=== PATIENT | female | born 1965 | race Caucasian/White ===

== ENCOUNTER 2021-09-26 10:51 | Emergency (ER) | payer MEDICARE, MEDICAID ==
[~2021-09-26] VITALS: Ht 165.1 cm; Wt 48.6 kg
[~2021-09-26 10:51] MED LIST: BUSPIRONE; TRILEPTAL150 MG PO; ZIPRASIDONE
[2021-09-26 11:24] LABS: BASO % 0.2 % (0.0-2.0); EOS % 0.1 % (0.0-4.0); GRAN # 13.5 K/mm3 (1.4-6.5); GRAN % 82.4 % (42.2-75.2); HEMATOCRIT 41.6 % (37.0-47.0); HEMOGLOBIN 14.4 g/dl (12.5-16.0); LYMPH # 1.4 K/mm3 (1.2-3.4); LYMPH % 8.8 % (20.0-51.0); MEAN CELL VOLUME 84 fl (80.0-100.0); MEAN CORPUSCULAR HEMOGLOBIN 29 pg (27-31); MEAN CORPUSCULAR HGB CONC 35 g/dl (33.0-37.0); MEAN PLATELET VOLUME 8.7 fl (7.4-10.4); MONO # 1.3 K/mm3 (0.1-0.6); PLATELET COUNT 352 K/mm3 (130-400); RED BLOOD COUNT 4.96 M/mm3 (4.10-5.30); REDCELL DISTRIBUTION WIDTH-CV 13.1 % (11.5-14.5)
[2021-09-26 11:36] LABS: PROTHROMBIN TIME 11.6 SECONDS (9.7-12.8)
[2021-09-26 11:38] LABS: PARTIAL THROMBOPLASTIN TIME 31.2 SECONDS (26.0-37.0)
[2021-09-26 11:40] LABS: ALANINE AMINOTRANSFERASE 24 U/L (0-55); ALBUMIN 3.8 gm/dL (3.5-5.0); ALCOHOL(ethanol),MEDICAL < 10 mg/dL (0-10); ALKALINE PHOSPHATASE 118 U/L (40-150); AST,SGOT 15 U/L (5-34); BILIRUBIN,TOTAL 0.8 mg/dL (0.2-1.2); BLOOD UREA NITROGEN 8 mg/dL (10-20); CALCIUM 9.8 mg/dL (8.4-10.2); CARBON DIOXIDE 20 mmol/L (22-29); CREATININE, serum 0.67 mg/dL (0.57-1.11); GLUCOSE 123 mg/dL (70-99); TOTAL PROTEIN 7.4 gm/dL (6.2-8.1)
[2021-09-26 11:45] LABS: ANION GAP 16 mmol/L (7-16); CHLORIDE 98 mmol/L (98-107); POTASSIUM 3.8 mmol/L (3.5-4.5); SODIUM 134 mmol/L (136-145)
[2021-09-26 11:46] LABS: TROPONIN-I < 0.010 ng/mL (0.00-0.033)
[2021-09-26 11:51] LABS: COLLECTION METHOD CLEAN CATCH
[2021-09-26 12:04] LABS: PH 7 (5-8); SQUAMOUS EPITHELIAL 0-2 /hpf (0-10); URINE APPEARANCE Clear (CLEAR/HAZY); URINE BACTERIA None Seen /hpf (NONE SEEN); URINE BLOOD Negative (NEGATIVE); URINE COLOR Colorless (YELLOW); URINE GLUCOSE Negative (NEGATIVE); URINE KETONE Negative (NEGATIVE); URINE NITRATE Negative (NEGATIVE); URINE PROTEIN(semi-quant) Negative (NEGATIVE); URINE RBC None Seen /hpf (0-2); URINE UROBILINOGEN Negative (NEGATIVE); URINE WBC 0-2 /hpf (0-2)
[2021-09-26 12:11] LABS: TRICYCLIC ANTIDEPRESS URINE NEGATIVE
[2021-09-26] MEDS ORDERED: KEPPRA1000 MG (12:17)
[2021-09-26 13:15] VITALS: TEMP 98.2
[2021-09-26 15:30] VITALS: BP 104/70; PULSE 77
== END 2021-09-26 15:30 | disposition short-term general hospital (02) ==
LOC: COL.ER 10:51
PROVIDERS: Emergency Medicine
DX: I69.320 Aphasia following cerebral infarction (principal); C71.9 Malignant neoplasm of brain, unspecified; Z20.822 Contact with and (suspected) exposure to COVID-19; Z32.02 Encounter for pregnancy test, result negative
CPT/HCPCS: J1100; J1953; J7120; Q9967